=== PATIENT | male | born 1990 | race Caucasian/White ===

== ENCOUNTER 2019-07-29 09:51 | Emergency (ER) | payer SELFPAY ==
[~2019-07-29] VITALS: Ht 172.7 cm; Wt 80.0 kg
[2019-07-29] MEDS ORDERED: SODIUM CHLORIDE 0.9% 1,000 ML IV ONE (10:44)
[2019-07-29] MEDS ORDERED: ONDANSETRON HCL 4MG/2ML INJ IV STA (10:44)
[2019-07-29] MEDS ORDERED: LORAZEPAM 2MG/ML CPJ IV ONE (10:45)
[2019-07-29 11:40] LABS: CHLORIDE 103 mEq/L (98-107)
[2019-07-29 11:41] LABS: BASOPHILS % 0.4 % (0.0-2.0); EOSINOPHILS % 0.5 % (0.0-5.0); HEMATOCRIT. 50.9 % (42.0-52.0); HEMOGLOBIN. 18.1 g/dL (14.0-18.0); MEAN CORPUSCULAR HEMOGLOBIN 33.1 pg (28.0-32.0); MEAN CORPUSCULAR VOLUME 92.9 fL (80.0-94.0); MEAN PLATELET VOLUME 8.9 fl (7.4-10.4); MONOCYTES % 6.9 % (2.0-8.0); NEUTROPHILS % 77.2 % (40.0-76.0); PLATELET 229 x1000/uL (130-400); RED BLOOD CELL COUNT 5.48 mill/uL (4.7-6.1); RED CELL DISTRIBUTION WIDTH 13.9 % (11.6-14.6)
[2019-07-29 11:42] LABS: INR 0.9; PROTHROMBIN TIME 9.8 sec (9.6-11.0)
[2019-07-29 11:44] LABS: ETHANOL BLOOD < 10 mg/dL
[2019-07-29 11:49] LABS: CREATINE KINASE 74 IU/L (39-308)
[2019-07-29 11:51] LABS: CREATINE KINASE MB FRACTION < 1.0 ng/mL (0.5-3.6)
[2019-07-29 14:14] VITALS: BP 128/90
[2019-07-29 14:26] LABS: CLARITY URINE CLEAR (CLEAR); COLOR URINE YELLOW (YELLOW); KETONES URINE NEGATIVE (NEGATIVE); LEUKOCYTE ESTERASE URINE NEGATIVE (NEGATIVE); NITRITE URINE NEGATIVE (NEGATIVE); OCCULT BLOOD URINE NEGATIVE (NEGATIVE); PH URINE 7.5 (4.5-8.0); PROTEIN URINE NEGATIVE (NEGATIVE); SPECIFIC GRAVITY URINE 1.023 (1.005-1.030)
[2019-07-29 14:38] LABS: *AMPHETAMINES SCREEN URINE NEGATIVE (NEGATIVE); *BARBITURATES SCREEN URINE NEGATIVE (NEGATIVE); *BENZODIAZEPINES SCREEN URINE PRESUMTIVE POSITIVE (NEGATIVE); *COCAINE SCREEN URINE NEGATIVE (NEGATIVE); METHADONE URINE SCREEN NEGATIVE (NEGATIVE); OPIATES URINE SCREEN NEGATIVE (NEGATIVE)
[2019-07-29 14:39] LABS: CANNABINOID URINE SCREEN NEGATIVE (NEGATIVE); PHENCYCLIDINE URINE SCREEN NEGATIVE (NEGATIVE)
== END 2019-07-29 14:16 | disposition home or self-care (01) ==
LOC: ER 10:05
DX: R53.1 Weakness (principal)
CPT/HCPCS: 36415; 71045; 80053; 80305; 80320; 81003; 82550; 82553; 83690; 83880; 84484; 85025; 85610; 93005; 96374; 96375; 99284; J2060; J2405; J7030; G0480

== ENCOUNTER 2020-12-17 05:06 | Emergency (ER) | payer MEDICAID ==
[~2020-12-17] VITALS: Ht 175.3 cm; Wt 87.0 kg
[2020-12-17] MEDS ORDERED: FAMOTIDINE 20MG/2ML VIAL IV STA (06:10)
[2020-12-17] MEDS ORDERED: ONDANSETRON HCL 4MG/2ML INJ IV STA (06:10)
[2020-12-17] MEDS ORDERED: SODIUM CHLORIDE 0.9% 1,000 ML IV ONE (06:15)
[2020-12-17] MEDS ORDERED: MAGNESIUM 2 G PREMIX 50 ML IV ONE (06:15)
[2020-12-17] MEDS ORDERED: LORAZEPAM 2MG/ML CPJ IV ONE (06:15)
[2020-12-17 06:20] LABS: BASOPHILS % 0.6 % (0.0-2.0); EOSINOPHILS % 2.7 % (0.0-5.0); HEMATOCRIT. 45.9 % (42.0-52.0); HEMOGLOBIN. 15.3 g/dL (14.0-18.0); LYMPHOCYTES % 36.2 % (20.0-50.0); MEAN CORPUSCULAR HEMOGLOBIN 32.1 pg (28.0-32.0); MEAN CORPUSCULAR VOLUME 96.2 fL (80.0-94.0); MONOCYTES % 7.5 % (2.0-8.0); PLATELET 249 x1000/uL (130-400); RED BLOOD CELL COUNT 4.77 mill/uL (4.7-6.1); RED CELL DISTRIBUTION WIDTH 14.7 % (11.6-14.6)
[2020-12-17 06:25] LABS: CHLORIDE 106 mEq/L (98-107)
[2020-12-17 06:29] LABS: ETHANOL BLOOD 15 mg/dL
[2020-12-17 06:44] LABS: PROTHROMBIN TIME 10.7 sec (9.6-11.0)
[2020-12-17 08:46] LABS: CLARITY URINE CLEAR (CLEAR); COLOR URINE YELLOW (YELLOW); KETONES URINE TRACE (NEGATIVE); LEUKOCYTE ESTERASE URINE NEGATIVE (NEGATIVE); NITRITE URINE NEGATIVE (NEGATIVE); OCCULT BLOOD URINE NEGATIVE (NEGATIVE); PROTEIN URINE NEGATIVE (NEGATIVE); UROBILINOGEN URINE 0.2 E.U./dL (0.2-1.0)
[2020-12-17 09:17] LABS: *AMPHETAMINES SCREEN URINE NEGATIVE (NEGATIVE); *BARBITURATES SCREEN URINE NEGATIVE (NEGATIVE); *BENZODIAZEPINES SCREEN URINE PRESUMTIVE POSITIVE (NEGATIVE); *COCAINE SCREEN URINE NEGATIVE (NEGATIVE); CANNABINOID URINE SCREEN NEGATIVE (NEGATIVE); METHADONE URINE SCREEN NEGATIVE (NEGATIVE); OPIATES URINE SCREEN NEGATIVE (NEGATIVE); PHENCYCLIDINE URINE SCREEN NEGATIVE (NEGATIVE)
[2020-12-17] MEDS ORDERED: LORA-250 MT (09:32)
[2020-12-17] MEDS ORDERED: ONDA4TAB5 MT (09:32)
[2020-12-17] MEDS ORDERED: OMEP20CA14 MT (09:32)
[2020-12-17 09:44] VITALS: BP 117/79
== END 2020-12-17 09:54 | disposition home or self-care (01) ==
LOC: ER 05:06
DX: F10.229 Alcohol dependence with intoxication, unspecified (principal); R00.2 Palpitations; R11.10 Vomiting, unspecified; Y90.0 Blood alcohol level of less than 20 mg/100 ml; Z86.711 Personal history of pulmonary embolism; Z79.01 Long term (current) use of anticoagulants
CPT/HCPCS: 36415; 71045; 80053; 80305; 80320; 81003; 83690; 84484; 85025; 85610; 93005; 96365; 96366; 96375; 99285; J2060; J2405; J3475; J3490; J7030; G0480

== ENCOUNTER 2020-12-30 22:34 | Emergency (ER) | payer MEDICAID ==
[~2020-12-30] VITALS: Ht 172.7 cm; Wt 89.0 kg
[~2020-12-30 22:34] MED LIST: LORA-250 MT; OMEP20CA14 MT; ONDA4TAB5 MT
[2020-12-30] MEDS ORDERED: LORAZEPAM 2MG/ML CPJ IV ONE (23:00)
[2020-12-30] MEDS ORDERED: FOLIC ACID 1 MG, THIAMINE HCL 100 MG, MVI, ADULT NO.1 10 ML in DEXTROSE 5% WATER 1,000 ML IV ONE (23:00)
[2020-12-30] MEDS ORDERED: FOLIC ACID 1 MG, THIAMINE HCL 100 MG in DEXTROSE 5% WATER 1,000 ML IV ONE (23:00)
[2020-12-30] MEDS ORDERED: MULTIVITAMINS,THER W-MINERALS TABLET PO NR (23:30)
[2020-12-30 23:36] LABS: BASOPHILS % 0.8 % (0.0-2.0); CHLORIDE 108 mEq/L (98-107); HEMOGLOBIN. 16.1 g/dL (14.0-18.0); RED CELL DISTRIBUTION WIDTH 13.8 % (11.6-14.6)
[2020-12-30 23:40] LABS: ETHANOL BLOOD 171 mg/dL
[2020-12-31 00:24] LABS: EOSINOPHILS % 2.6 % (0.0-5.0); HEMATOCRIT. 44.8 % (42.0-52.0); LYMPHOCYTES % 54.5 % (20.0-50.0); MEAN CORPUSCULAR HEMOGLOBIN 32.6 pg (28.0-32.0); MEAN CORPUSCULAR VOLUME 90.7 fL (80.0-94.0); NEUTROPHILS % 32.1 % (40.0-76.0); PLATELET 255 x1000/uL (130-400); RED BLOOD CELL COUNT 4.94 mill/uL (4.7-6.1)
[2020-12-31] MEDS ORDERED: CHLORDIAZEPOXIDE 25MG CAPSULE PO ONE (02:15)
[2020-12-31] MEDS ORDERED: LORA-249 MT (02:38)
[2020-12-31 02:47] VITALS: BP 131/82
[2020-12-31] MEDS ORDERED: L25 MT (15:42)
[2020-12-31] MEDS ORDERED: NALT50TA5 MT (15:42)
== END 2020-12-31 02:45 | disposition home or self-care (01) ==
LOC: ER 22:34
DX: T51.0X1A Toxic effect of ethanol, accidental (unintentional), initial encounter (principal); R00.2 Palpitations; F10.231 Alcohol dependence with withdrawal delirium; Y90.6 Blood alcohol level of 120-199 mg/100 ml; F10.229 Alcohol dependence with intoxication, unspecified; Y92.89 Other specified places as the place of occurrence of the external cause
CPT/HCPCS: 36415; 80053; 80320; 85025; 93005; 96365; 96375; 99284; J2060; J3411; J3490; J7070; G0480

== ENCOUNTER 2020-12-31 12:06 | Emergency (ER) | payer MEDICAID ==
[~2020-12-31] VITALS: Ht 175.3 cm; Wt 89.0 kg
[~2020-12-31 12:06] MED LIST changes: +LORA-249 MT
[2020-12-31] MEDS ORDERED: LORAZEPAM 2MG/ML CPJ IV ONE (12:45)
[2020-12-31] MEDS ORDERED: PHENOBARBITAL SODIUM 130MG/ML 1ML IV SCH (12:45)
[2020-12-31] MEDS ORDERED: FOLIC ACID 1 MG, THIAMINE HCL 100 MG, MVI, ADULT NO.1 10 ML in DEXTROSE 5% WATER 1,000 ML IV ONE (12:45)
[2020-12-31] MEDS ORDERED: MULTIVITAMINS,THER W-MINERALS TABLET PO SCH (13:00)
[2020-12-31] MEDS ORDERED: FOLIC ACID 1 MG, THIAMINE HCL 100 MG in DEXTROSE 5% WATER 1,000 ML IV NR (13:00)
[2020-12-31] MEDS ORDERED: SODIUM CHLORIDE 0.9% 1,000 ML IV ONE ×2 (13:45→15:00)
[2020-12-31 15:25] LABS: BASOPHILS % 0.7 % (0.0-2.0); EOSINOPHILS % 1.1 % (0.0-5.0); HEMOGLOBIN. 16.6 g/dL (14.0-18.0); LYMPHOCYTES % 26.9 % (20.0-50.0); MEAN CORPUSCULAR HEMOGLOBIN 32.9 pg (28.0-32.0); MEAN CORPUSCULAR VOLUME 93.2 fL (80.0-94.0); MEAN PLATELET VOLUME 9.1 fl (7.4-10.4); MONOCYTES % 8.8 % (2.0-8.0); NEUTROPHILS % 62.5 % (40.0-76.0); PLATELET 257 x1000/uL (130-400); RED BLOOD CELL COUNT 5.04 mill/uL (4.7-6.1); RED CELL DISTRIBUTION WIDTH 13.7 % (11.6-14.6)
[2020-12-31 15:27] LABS: CHLORIDE 105 mEq/L (98-107)
[2020-12-31 15:30] LABS: ETHANOL BLOOD < 10 mg/dL
[2020-12-31 15:39] LABS: *AMPHETAMINES SCREEN URINE NEGATIVE (NEGATIVE)
[2020-12-31 15:40] LABS: *BARBITURATES SCREEN URINE PRESUMTIVE POSITIVE (NEGATIVE); *BENZODIAZEPINES SCREEN URINE PRESUMTIVE POSITIVE (NEGATIVE); *COCAINE SCREEN URINE PRESUMTIVE POSITIVE (NEGATIVE); CANNABINOID URINE SCREEN NEGATIVE (NEGATIVE); METHADONE URINE SCREEN NEGATIVE (NEGATIVE); OPIATES URINE SCREEN NEGATIVE (NEGATIVE); PHENCYCLIDINE URINE SCREEN NEGATIVE (NEGATIVE)
[2020-12-31] MEDS ORDERED: NALT50TA5 MT (15:42)
[2020-12-31] MEDS ORDERED: L25 MT (15:42)
[2020-12-31 16:05] VITALS: BP 131/86
== END 2020-12-31 16:10 | disposition home or self-care (01) ==
LOC: ER 12:06
DX: F10.231 Alcohol dependence with withdrawal delirium (principal); Y90.0 Blood alcohol level of less than 20 mg/100 ml; R00.2 Palpitations; F13.10 Sedative, hypnotic or anxiolytic abuse, uncomplicated; R00.0 Tachycardia, unspecified; F14.10 Cocaine abuse, uncomplicated; E86.0 Dehydration; R56.9 Unspecified convulsions; R03.0 Elevated blood-pressure reading, without diagnosis of hypertension
CPT/HCPCS: 36415; 80053; 80305; 80320; 83605; 85025; 93005; 96361; 96374; 96375; 99284; J2060; J2560; J3411; J3490; J7030; J7070; G0480

== ENCOUNTER 2021-01-10 14:14 | Emergency (ER) | payer MEDICAID ==
[~2021-01-10] VITALS: Ht 175.3 cm; Wt 89.0 kg
[~2021-01-10 14:14] MED LIST changes: +L25 MT; +NALT50TA5 MT
[2021-01-10] MEDS ORDERED: SODIUM CHLORIDE 0.9% 1,000 ML IV ONE (14:45)
[2021-01-10] MEDS ORDERED: LORAZEPAM 1MG TABLET PO ONE (14:45)
[2021-01-10 15:37] LABS: BASOPHILS % 0.4 % (0.0-2.0); EOSINOPHILS % 1.4 % (0.0-5.0); HEMATOCRIT. 46.9 % (42.0-52.0); HEMOGLOBIN. 16.1 g/dL (14.0-18.0); LYMPHOCYTES % 27.8 % (20.0-50.0); MEAN CORPUSCULAR HEMOGLOBIN 32.1 pg (28.0-32.0); MEAN CORPUSCULAR VOLUME 93.4 fL (80.0-94.0); MONOCYTES % 8.7 % (2.0-8.0); NEUTROPHILS % 61.7 % (40.0-76.0); PLATELET 236 x1000/uL (130-400); RED BLOOD CELL COUNT 5.02 mill/uL (4.7-6.1); RED CELL DISTRIBUTION WIDTH 14.1 % (11.6-14.6)
[2021-01-10 15:41] LABS: CHLORIDE 104 mEq/L (98-107)
[2021-01-10 15:46] LABS: ETHANOL BLOOD < 10 mg/dL
[2021-01-10 16:06] VITALS: BP 130/78
== END 2021-01-10 17:15 | disposition home or self-care (01) ==
LOC: ER 15:14
DX: T43.621A Poisoning by amphetamines, accidental (unintentional), initial encounter (principal); R00.2 Palpitations; F15.188 Other stimulant abuse with other stimulant-induced disorder; F15.180 Other stimulant abuse with stimulant-induced anxiety disorder; Y92.012 Bathroom of single-family (private) house as the place of occurrence of the external cause; R74.01 Elevation of levels of liver transaminase levels; F10.20 Alcohol dependence, uncomplicated; Y90.0 Blood alcohol level of less than 20 mg/100 ml; Z86.711 Personal history of pulmonary embolism
CPT/HCPCS: 36415; 71046; 80053; 80320; 84443; 85025; 85379; 93005; 96360; 99285; J7030; G0480

== ENCOUNTER 2021-01-22 13:10 | Emergency (ER) | payer MEDICAID ==
[~2021-01-22] VITALS: Ht 172.7 cm; Wt 192.0 kg
[2021-01-22] MEDS ORDERED: PHENOBARBITAL SODIUM 65MG/ML 1ML IV ONE ×3 (14:00→15:30)
[2021-01-22] MEDS ORDERED: CHLO10CA71 MT (14:04)
[2021-01-22 14:07] LABS: BASOPHILS % 0.5 % (0.0-2.0); EOSINOPHILS % 0.8 % (0.0-5.0); HEMATOCRIT. 50.2 % (42.0-52.0); HEMOGLOBIN. 17.8 g/dL (14.0-18.0); LYMPHOCYTES % 39.8 % (20.0-50.0); MEAN CORPUSCULAR HEMOGLOBIN 32.5 pg (28.0-32.0); MEAN CORPUSCULAR VOLUME 91.9 fL (80.0-94.0); MEAN PLATELET VOLUME 7.9 fl (7.4-10.4); MONOCYTES % 9.9 % (2.0-8.0); PLATELET 224 x1000/uL (130-400); RED BLOOD CELL COUNT 5.46 mill/uL (4.7-6.1); RED CELL DISTRIBUTION WIDTH 15.2 % (11.6-14.6)
[2021-01-22 14:10] LABS: CHLORIDE 102 mEq/L (98-107)
[2021-01-22 14:14] LABS: ETHANOL BLOOD 79 mg/dL
[2021-01-22] MEDS ORDERED: ONDANSETRON 4MG ODT PO ONE (15:30)
[2021-01-22 17:30] VITALS: BP 128/82
== END 2021-01-22 19:31 | disposition home or self-care (01) ==
LOC: ER 13:10
DX: F10.239 Alcohol dependence with withdrawal, unspecified (principal); Y90.3 Blood alcohol level of 60-79 mg/100 ml; I10 Essential (primary) hypertension; R00.0 Tachycardia, unspecified
CPT/HCPCS: 36415; 80053; 80320; 85025; 96374; 96376; 99285; J2560; Q0162; G0480

== ENCOUNTER 2024-05-15 15:29 | Emergency (ER) | payer SELFPAY ==
[~2024-05-15] VITALS: Ht 175.3 cm; Wt 92.0 kg
[~2024-05-15 15:29] MED LIST changes: +CHLO25CA11 MT; -L25 MT
[2024-05-15 15:42] VITALS: O2SAT 98
[2024-05-15 16:51] LABS: BASOPHILS % 0.3 % (0.0-2.0); EOSINOPHILS % 0.7 % (0.0-5.0); HEMATOCRIT. 47.4 % (42.0-52.0); HEMOGLOBIN. 16.7 g/dL (14.0-18.0); LYMPHOCYTES % 11.5 % (20.0-50.0); MEAN CORPUSCULAR HEMOGLOBIN 31.8 pg (28.0-32.0); MEAN CORPUSCULAR HGB CONC 35.1 g/dL (31.0-37.0); MEAN CORPUSCULAR VOLUME 90.5 fL (80.0-94.0); MEAN PLATELET VOLUME 8.5 fl (7.4-10.4); MONOCYTES % 5.9 % (2.0-8.0); NEUTROPHILS % 81.6 % (40.0-76.0); PLATELET 223 x1000/uL (130-400); RED BLOOD CELL COUNT 5.24 mill/uL (4.7-6.1); RED CELL DISTRIBUTION WIDTH 13.5 % (11.6-14.6); WHITE BLOOD COUNT 11.7 x1000/uL (4.5-11.0)
[2024-05-15 16:58] LABS: CHLORIDE 105 mEq/L (98-107); POTASSIUM 4.1 mEq/L (3.5-5.1); SODIUM 136 mEq/L (136-145)
[2024-05-15 16:59] LABS: CARBON DIOXIDE 25 mEq/L (21-32)
[2024-05-15 17:00] LABS: CALCIUM 9.7 mg/dL (8.7-10.4)
[2024-05-15 17:04] LABS: CREATININE 0.8 mg/dL (0.6-1.3); GLUCOSE 133 mg/dL (70-105); UREA NITROGEN BLOOD 12 mg/dL (9-23)
[2024-05-15 17:14] LABS: TROPONIN I HIGH SENSITIVITY < 4 ng/L (3.0-53)
[2024-05-15 17:57] VITALS: BP 115/80; PULSE 92; RESP 16; TEMP 37.00296; O2SAT 98
== END 2024-05-15 18:13 | disposition home or self-care (01) ==
LOC: ER 15:29
DX: R00.2 Palpitations (principal); Z79.899 Other long term (current) drug therapy
CPT/HCPCS: 36415; 71045; 80048; 84484; 85025; 93005; 99285